=== PATIENT | male | born 1930 | race Caucasian/White ===

== ENCOUNTER → 2016-06-22 | Outpatient (CLI) | payer MEDICARE ==
[~2016-06-22] MED LIST: ASCO500T20 PO; ASP81TEC PO; ATEN25TA PO; ATRV10T PO; CHOL10003 PO; FOLI0.4T2 PO; GARL400T13 PO; METO25TA PO; MULT-850 PO; OMEG1CAP53 PO; OXYC-12 PO; PRED20TA PO
--- NOTE | 2016-06-22 14:04 | Diagnostic Imaging Report ---
Three views of the left shoulder. INDICATION: Left shoulder pain. FINDINGS: There are calcifications along the distal rotator cuff tendon insertion site compatible with calcific tendinitis. There is no acute fracture or dislocation. There are inferior osteophytes from the acromioclavicular joint and subchondral sclerosis at the glenohumeral joint compatible with degenerative changes. IMPRESSION: Calcific tendinitis. 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 Dictated by: Dictated on workstation # [id number]
--- NOTE | 2016-06-22 14:06 | Diagnostic Imaging Report ---
EXAMINATION: PA and lateral views of the chest. INDICATION: Chest pain. Shoulder pain. FINDINGS: The lungs are hyperinflated. The heart size is normal. No effusion or pneumothorax. The mediastinum and rocky appear unremarkable. IMPRESSION: Hyperinflated clear lungs. Dictated by: Dictated on workstation # [id number]
== END ==
LOC: RAD 10:10
DX: R07.89 Other chest pain (principal); M25.512 Pain in left shoulder
CPT/HCPCS: 71020; 73030

== ENCOUNTER → 2018-02-28 | Outpatient (CLI) | payer MEDICARE ==
--- NOTE | 2018-02-28 18:33 | Diagnostic Imaging Report ---
INDICATION: Jaw pain. FINDINGS: Panorex view of the mandible is obtained. There are numerous missing teeth in both the maxilla and mandible. There is an erosion involving the remaining left mandibular premolar. There is no evidence of lytic mandibular lesion. There is mild deformity of the right mandibular head indicating temporomandibular degenerative change. 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 Otherwise, no acute abnormality is identified. Dictated by: Dictated on workstation # [id number]
== END ==
LOC: RAD 11:22
DX: K08.89 Other specified disorders of teeth and supporting structures (principal); M26.621 Arthralgia of right temporomandibular joint; M26.69 Other specified disorders of temporomandibular joint
CPT/HCPCS: 70355

== ENCOUNTER → 2020-02-06 | Outpatient (CLI) | payer MEDICARE ==
--- NOTE | 2020-02-06 14:17 | Diagnostic Imaging Report ---
PROCEDURE: MR imaging of the brain without contrast. TECHNIQUE: Multiplanar, multisequence MR imaging of the brain was performed without contrast. INDICATION: Transient ischemic attack with weakness on the right side and speech difficulty. Correlation is made with prior MRI brain study from 04/19/2012. The ventricles and sulci are prominent consistent with the patient's age. Periventricular and subcortical white matter foci are noted consistent with chronic microvascular ischemia. The normal expected flow-voids within the carotid siphons are noted. There is no diffusion restriction identified to suggest acute ischemia. No acute intra-axial or extra-axial hemorrhage is detected. Corpus callosum is unremarkable. The sella and parasellar structures are unremarkable. IMPRESSION: Senescent changes. No acute intracranial process is detected. Dictated by: Dictated on workstation # [id number]
== END ==
LOC: RAD 13:15
DX: G83.11 Monoplegia of lower limb affecting right dominant side (principal)
CPT/HCPCS: 70551